=== PATIENT | female | born 1965 | race Caucasian/White ===

== ENCOUNTER 2017-12-12 20:13 | Emergency (ER) | payer SELFPAY ==
[~2017-12-12] VITALS: Ht 167.6 cm; Wt 46.0 kg
[2017-12-12 20:20] VITALS: BP 133/73; PULSE 65; RESP 18; TEMP 97.4; O2SAT 99
--- NOTE | 2017-12-12 20:34 | PD ---
HPI Chief Complaint: Alcohol/Drug Intoxication Time Seen by Provider: 20:28 Travel History International Travel<30 days: No Contact w/Intl Traveler<30days: No Traveled to known affect area: No History of Present Illness HPI This is a 52-year-old female who presents via EMS for evaluation. The paramedics report that they were told by fire and rescue that the patient was using K2. The patient denies any drug use. She believes that she may have had a seizure. She reports a long-standing history of seizure disorder, previously on Dilantin TID but she has been out of her medication for the past 8 months. She reports that she is from [place], traveled to the [facility] by bus about 1 week ago. She reports that she is underweight to [employer] in order to attempt to get a job. She reports that today she may have had a seizure, she cannot report any additional history in regards to this. She is complaining of left-sided lower rib cage pain. She believes that she may have injured her ribs during her seizure. She also reports that she became nauseous and vomited one time today. She denies any headache, neck or back pain, shortness of breath, abdominal pain. She reports a history of epilepsy, bipolar disorder. No other complaints at this time. [facility] Past Medical History Bipolar Disorder: Yes Medical other: Yes Seizures: Yes ?: Not Past Surgical History Surgical History: No Previous Surgery Social History Alcohol Use: Yes Tobacco Use: No Substance Use: Yes (UNKNOWN REPORTED ) Allergies-Medications (Allergen,Severity, Reaction): Coded Allergies: Penicillins (Verified Allergy, Unknown, 12/12/17) codeine (Verified Allergy, Unknown, 12/12/17) ketorolac (Verified Allergy, Unknown, 12/12/17) Reported Meds & Prescriptions Reported Meds & Active Scripts Active Dilantin (Phenytoin Extended) 100 Mg Cap 100 Mg PO TID Review of Systems Except as stated in HPI: all other systems reviewed are Neg Physical Exam Narrative GENERAL: Well-developed well-nourished female no acute distress SKIN: Warm and dry. HEAD: Atraumatic. Normocephalic. EYES: Pupils equal and round. No scleral icterus. No injection or drainage. ENT: No nasal bleeding or discharge. Mucous membranes pink and moist. NECK: Trachea midline. No JVD. CARDIOVASCULAR: Regular rate and rhythm. No murmur appreciated. RESPIRATORY: No accessory muscle use. Clear to auscultation. Breath sounds equal bilaterally. GASTROINTESTINAL: Abdomen soft, non-tender, nondistended. Hepatic and splenic margins not palpable. MUSCULOSKELETAL: No obvious deformities mild tenderness to palpation of the lateral left lower rib cage. There is no bony crepitus. There is no tenderness to palpation along the cervical thoracic or lumbar midline spine. NEUROLOGICAL: Awake and alert. No obvious cranial nerve deficits. Motor grossly within normal limits. Normal speech. Data Data Last Documented VS Vital Signs Date Time Temp Pulse Resp B/P (MAP) Pulse Ox O2 Delivery O2 Flow Rate FiO2 12/12/17 20:36 96 Room Air 12/12/17 20:20 97.4 65 18 133/73 (93) Orders Orders Complete Blood Count With Diff (12/12/17 20:29) Basic Metabolic Panel (Bmp) (12/12/17 20:29) Alcohol (Ethanol) (12/12/17 20:29) Phenytoin (Dilantin) (12/12/17 20:29) Drug Screen, Random Urine (12/12/17 20:29) Blood Glucose (12/12/17 20:29) Ecg Monitoring (12/12/17 20:29) Iv Access Insert/Monitor (12/12/17 20:29) Oximetry (12/12/17 20:29) Magnesium (Mg) (12/12/17 20:29) Chest, Single Ap (12/12/17 ) Ct Brain W/O Iv Contrast(Rout) (12/12/17 ) Phenytoin Inj (Dilantin Inj) (12/12/17 23:15) Ed Discharge Order (12/13/17 00:38) Labs Laboratory Tests Test 12/12/17 21:24 White Blood Count 7.1 TH/MM3 Red Blood Count 4.01 MIL/MM3 Hemoglobin 12.8 GM/DL Hematocrit 38.0 % Mean Corpuscular Volume 94.8 FL Mean Corpuscular Hemoglobin 31.9 PG Mean Corpuscular Hemoglobin Concent 33.6 % Red Cell Distribution Width 13.3 % Platelet Count 298 TH/MM3 Mean Platelet Volume 8.5 FL Neutrophils (%) (Auto) 56.7 % Lymphocytes (%) (Auto) 36.2 % Monocytes (%) (Auto) 5.0 % Eosinophils (%) (Auto) 1.0 % Basophils (%) (Auto) 1.1 % Neutrophils # (Auto) 4.0 TH/MM3 Lymphocytes # (Auto) 2.6 TH/MM3 Monocytes # (Auto) 0.4 TH/MM3 Eosinophils # (Auto) 0.1 TH/MM3 Basophils # (Auto) 0.1 TH/MM3 CBC Comment DIFF FINAL Differential Comment Blood Urea Nitrogen 13 MG/DL Creatinine 0.79 MG/DL Random Glucose 83 MG/DL Calcium Level 8.9 MG/DL Magnesium Level 2.2 MG/DL Sodium Level 144 MEQ/L Potassium Level 4.6 MEQ/L Chloride Level 106 MEQ/L Carbon Dioxide Level 30.4 MEQ/L Anion Gap 8 MEQ/L Estimat Glomerular Filtration Rate 77 ML/MIN Phenytoin (Dilantin) Level 0.5 MCG/ML Ethyl Alcohol Level 28 MG/DL MDM Medical Decision Making Medical Screen Exam Complete: Yes Emergency Medical Condition: Yes Medical Record Reviewed: Yes Differential Diagnosis Medication noncompliance, subtherapeutic Dilantin, breakthrough seizure, hypoglycemia, electrolyte abnormality, substance-induced disorder Narrative Course 52-year-old female presents for evaluation after potentially having a seizure, potentially using K2. History of seizures, noncompliant with Dilantin for several months. Currently traveling from [place] to [place] in an attempt to get employment at [employer]. CBC is unremarkable. Blood glucose is 80. Chest x-ray reveals no acute disease. CT the brain reveals no acute abnormalities. The patient's Dilantin is subtherapeutic. She will be given a Dilantin bolus and then discharged with a 30 day supply of her regularly dosed Dilantin. Diagnosis Primary Impression: History of seizures Additional Impression: Noncompliance with medication regimen Additional Instructions: No driving/operating heavy machinery for 6 months from the date of your most recent seizure which is presumably today. Medication as prescribed. Follow-up with a primary care physician for continuation of your medical care. Return for any emergent medical conditions. Med/Other Pt SpecificInfo: Prescription(s) given Scripts Phenytoin Extended (Dilantin) 100 Mg Cap 100 MG PO TID for Control Seizures, #90 CAP 0 Refills Prov: Teresa Purvis MD 12/12/17 Disposition: DISCHARGE HOME Condition: Stable Cristian Chaudhry December 12, 2017 20:34
[2017-12-12 20:36] VITALS: O2SAT 96
--- NOTE | 2017-12-12 21:10 | RADRPT ---
EXAM DATE/TIME: 12/12/2017 20:37 [facility] COMPARISON: No previous studies available for comparison. INDICATIONS : Chest and rib pain. MEDICAL HISTORY : None. SURGICAL HISTORY : None. ENCOUNTER: Initial ACUITY: 1 day PAIN SCORE: 8/10 LOCATION: Bilateral chest FINDINGS: A single view of the chest demonstrates the lungs to be symmetrically aerated without evidence of mas s, infiltrate or effusion. The cardiomediastinal contours are unremarkable. Osseous structures are intact. CONCLUSION: No acute disease. Jerardo Mendosa MD on December 12, 2017 at 21:07 Board Certified Radiologist. This report was verified electronically.
--- NOTE | 2017-12-12 21:12 | RADRPT ---
EXAM DATE/TIME: 12/12/2017 20:46 [facility] COMPARISON: No previous studies available for comparison. INDICATIONS : Altered mental status. RADIATION DOSE: 35.42 CTDIvol (mGy) MEDICAL HISTORY : Seizures. SURGICAL HISTORY : None. ENCOUNTER: Initial ACUITY: 1 day PAIN SCALE: 0/10 LOCATION: cranial TECHNIQUE: Multiple contiguous axial images were obtained of the head. Using automated exposure control and adj ustment of the mA and/or kV according to patient size, radiation dose was kept as low as reasonably a chievable to obtain optimal diagnostic quality images. DICOM format image data is available electro nically for review and comparison. FINDINGS: CEREBRUM: The ventricles are normal for age. No evidence of midline shift, mass lesion, hemorrhage or acute in farction. No extra-axial fluid collections are seen. POSTERIOR FOSSA: The cerebellum and brainstem are intact. The 4th ventricle is midline. The cerebellopontine angle i s unremarkable. EXTRACRANIAL: The visualized portion of the orbits is intact. SKULL: The calvaria is intact. No evidence of skull fracture. CONCLUSION: Normal examination. Jerardo Mendosa MD on December 12, 2017 at 21:08 Board Certified Radiologist. This report was verified electronically.
[2017-12-12 21:57] LABS: BASOPHIL # 0.1 TH/MM3 (0-0.2); BASOPHIL % 1.1 % (0.0-2.0); EOSINOPHIL # 0.1 TH/MM3 (0-0.4); HEMOGLOBIN 12.8 GM/DL (11.6-15.3); LYMPH % 36.2 % (9.0-44.0); LYMPHOCYTE # 2.6 TH/MM3 (1.0-4.8); MEAN CELL VOLUME 94.8 FL (80.0-100.0); MEAN CORPUSCULAR HEMOGLOBIN 31.9 PG (27.0-34.0); MEAN CORPUSCULAR HGB CONC 33.6 % (32.0-36.0); MEAN PLATELET VOLUME 8.5 FL (7.0-11.0); MONOCYTE # 0.4 TH/MM3 (0-0.9); NEUT % 56.7 % (16.0-70.0); PLATELET COUNT 298 TH/MM3 (150-450); RED BLOOD COUNT 4.01 MIL/MM3 (4.00-5.30); RED CELL DISTRIBUTION WIDTH 13.3 % (11.6-17.2); WHITE BLOOD COUNT 7.1 TH/MM3 (4.0-11.0)
[2017-12-12] MEDS ORDERED: DILA100C PO (22:51)
[2017-12-12 23:03] LABS: PHENYTOIN (DILANTIN) 0.5 MCG/ML (10.0-20.0)
[2017-12-12] MEDS ORDERED: PHENYTOIN INJ 1,000 MG in SODIUM CHLORIDE 0.9% INJ 100 ML IV ONE (23:15)
[2017-12-12 23:29] LABS: BICARBONATE 30.4 MEQ/L (21.0-32.0); CALCIUM 8.9 MG/DL (8.5-10.1); CREATININE 0.79 MG/DL (0.50-1.00); MAGNESIUM 2.2 MG/DL (1.5-2.5)
--- NOTE | 2017-12-13 00:21 | PD ---
Data Data Last Documented VS Vital Signs Date Time Temp Pulse Resp B/P (MAP) Pulse Ox O2 Delivery O2 Flow Rate FiO2 12/12/17 20:36 96 Room Air 12/12/17 20:20 97.4 65 18 133/73 (93) Orders Orders Complete Blood Count With Diff (12/12/17 20:29) Basic Metabolic Panel (Bmp) (12/12/17 20:29) Alcohol (Ethanol) (12/12/17 20:29) Phenytoin (Dilantin) (12/12/17 20:29) Drug Screen, Random Urine (12/12/17 20:29) Blood Glucose (12/12/17 20:29) Ecg Monitoring (12/12/17 20:29) Iv Access Insert/Monitor (12/12/17 20:29) Oximetry (12/12/17 20:29) Magnesium (Mg) (12/12/17 20:29) Chest, Single Ap (12/12/17 ) Ct Brain W/O Iv Contrast(Rout) (12/12/17 ) Phenytoin Inj (Dilantin Inj) (12/12/17 23:15) Labs Laboratory Tests Test 12/12/17 21:24 White Blood Count 7.1 TH/MM3 Red Blood Count 4.01 MIL/MM3 Hemoglobin 12.8 GM/DL Hematocrit 38.0 % Mean Corpuscular Volume 94.8 FL Mean Corpuscular Hemoglobin 31.9 PG Mean Corpuscular Hemoglobin Concent 33.6 % Red Cell Distribution Width 13.3 % Platelet Count 298 TH/MM3 Mean Platelet Volume 8.5 FL Neutrophils (%) (Auto) 56.7 % Lymphocytes (%) (Auto) 36.2 % Monocytes (%) (Auto) 5.0 % Eosinophils (%) (Auto) 1.0 % Basophils (%) (Auto) 1.1 % Neutrophils # (Auto) 4.0 TH/MM3 Lymphocytes # (Auto) 2.6 TH/MM3 Monocytes # (Auto) 0.4 TH/MM3 Eosinophils # (Auto) 0.1 TH/MM3 Basophils # (Auto) 0.1 TH/MM3 CBC Comment DIFF FINAL Differential Comment Blood Urea Nitrogen 13 MG/DL Creatinine 0.79 MG/DL Random Glucose 83 MG/DL Calcium Level 8.9 MG/DL Magnesium Level 2.2 MG/DL Sodium Level 144 MEQ/L Potassium Level 4.6 MEQ/L Chloride Level 106 MEQ/L Carbon Dioxide Level 30.4 MEQ/L Anion Gap 8 MEQ/L Estimat Glomerular Filtration Rate 77 ML/MIN Phenytoin (Dilantin) Level 0.5 MCG/ML Ethyl Alcohol Level 28 MG/DL [facility] Medical Record Reviewed: Yes Supervised Visit with NICKI: Yes Narrative Course During the course of the patient's emergency department visit, the patient's history, examination, and differential diagnosis were reviewed with the patient. The patient was placed on a electronic device monitor with oximetry and frequent blood pressure monitoring. The patient had IV access obtained and blood work sent for analysis. The patient's case was checked out to me by Cristian, the physician assistant golf course superintendent. The case was initially staffed with me, however at the conclusion of his shift, basic metabolic profile was still pending, therefore he checked the patient's case out to me. The patient was provided Dilantin IV when the patient's Dilantin level was noted to be subtherapeutic at 0.5. The patient's laboratory studies were reviewed and remarkable for alcohol level 28, Dilantin level 0.5, basic metabolic profile is remarkable for GFR 77, magnesium 2.2, CBC within normal limits. Radiology studies were reviewed and remarkable for a chest x-ray that shows no acute cardiopulmonary disease. CT scan of the brain shows no acute abnormality. The patient will be discharged home with a prescription for Dilantin. The patient is resting comfortably and feels better, is alert and in no distress. The patient's results and examination findings were discussed with the patient. The repeat examination is unremarkable and benign. The history, exam, diagnostic testing, and current condition do not suggest any significant pathology to warrant further testing, continued ED treatment, admission, or surgical evaluation at this point. The vital signs have been stable. The patient does not have uncontrollable pain, intractable vomiting, or other significant symptoms. The patient's condition is stable and appropriate for discharge. The patient will pursue further outpatient evaluation with a primary care physician or other designated or consulting physician as indicated in the discharge instructions. The patient expressed understanding and was agreeable with this plan. Diagnosis Primary Impression: History of seizures Additional Impression: Noncompliance with medication regimen Referrals: [facility] 3 days Patient Instructions: General Instructions Additional Instruction: No driving/operating heavy machinery for 6 months from the date of your most recent seizure which is presumably today. Medication as prescribed. Follow-up with a primary care physician for continuation of your medical care. Return for any emergent medical conditions. Med/Other Pt SpecificInfo: Prescription(s) given Scripts Phenytoin Extended (Dilantin) 100 Mg Cap 100 MG PO TID for Control Seizures, #90 CAP 0 Refills Prov: Teresa Purvis MD 12/12/17 Disposition: 01 DISCHARGE HOME Condition: Stable Teresa Purvis MD December 13, 2017 00:21
== END 2017-12-13 00:52 | disposition home or self-care (01) ==
LOC: NEPE 20:13
DX: G40.909 Epilepsy, unspecified, not intractable, without status epilepticus (principal); F31.9 Bipolar disorder, unspecified; Z79.899 Other long term (current) drug therapy; Z91.14 Patient's other noncompliance with medication regimen
CPT/HCPCS: 70450; 71045; 80048; 80185; 80307; 83735; 85025; 96365; 99284; J1165